=== PATIENT | male | born 1960 | race Caucasian/White ===

== ENCOUNTER 2020-01-02 16:21 | Outpatient (CLI) | payer MEDICARE, SELFPAY ==
--- NOTE | 2020-01-02 16:56 | MRR_ITS ---
PROCEDURE INFORMATION: Exam: MR Lumbar Spine Without Contrast. 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 COMPARISON: No relevant prior studies available. FINDINGS: Vertebrae: The vertebral body heights are maintained. No fracture. No bony destructive lesion. There are diffuse mild to moderate degenerative changes in the lumbar spine with disc space narrowing, marginal osteophytes and facet degenerative changes. There is desiccation and narrowing of all discs in the lumbar spine greatest at L5-S1. No subluxation. Spinal cord: Normal signal. No cord compression. T7-T8: At L3-L4, there is mild degenerative retrolisthesis of L3 on L4 with tiny disc bulge but no stenosis or foraminal narrowing. Moderate facet degenerative changes are noted. L1-L2: At L1-L2, there is a tiny disc bulge with small marginal osteophytes but there is no stenosis or significant foraminal narrowing. L2-L3: At L2-L3, there is a tiny disc bulge with small marginal osteophytes and no stenosis or significant foraminal narrowing. L3-L4: No significant disc disease. No significant spinal canal stenosis. No neural foraminal stenosis. L4-L5: No significant disc disease. No significant spinal canal stenosis. No neural foraminal stenosis. L5-S1: At L5-S1, there is a small central disc bulge/protrusion which slightly indents the anterior thecal sac but there is no critical stenosis. There is mild bilateral foraminal narrowing at this level due to moderate bilateral facet and ligamentum flavum hypertrophy. Other bones/joints: No acute fracture. Soft tissues: Unremarkable. MR/MR lumbar spine wo con* [id number] IMPRESSION: 1. Degenerative changes are noted throughout the lumbar spine. No acute fracture. 2. There is small disc bulges at multiple levels in the lumbar spine greatest at L5-S1 but there is no critical stenosis or significant foraminal narrowing.
== END 2020-01-02 16:22 | disposition home or self-care (01) ==
LOC: RADSHAW 16:21
PROVIDERS: Family Provider Family Medicine; PCP Nurse Practitioner Family; Visit Provider Nurse Practitioner Family
DX: M51.36 Other intervertebral disc degeneration, lumbar region (principal); M51.27 Other intervertebral disc displacement, lumbosacral region; R20.0 Anesthesia of skin; M47.896 Other spondylosis, lumbar region
CPT/HCPCS: 72148